=== PATIENT | female | born 1965 | race Two or more races ===

== ENCOUNTER 2018-10-15 13:10 | Emergency (ER) | payer MEDICAID ==
[~2018-10-15] VITALS: Ht 154.9 cm; Wt 106.0 kg
[2018-10-15] MEDS ORDERED: MORPHINE SULFATE 10 MG/ML CPJ IM ONE (15:00)
[2018-10-15] MEDS ORDERED: KETOROLAC 60MG/2ML VIAL IM ONE (15:00)
[2018-10-15 16:15] VITALS: BP 164/82
== END 2018-10-15 18:15 | disposition home or self-care (01) ==
LOC: ER 13:10
DX: S82.252A Displaced comminuted fracture of shaft of left tibia, initial encounter for closed fracture (principal); S82.492A Other fracture of shaft of left fibula, initial encounter for closed fracture; S93.492A Sprain of other ligament of left ankle, initial encounter; S09.8XXA Other specified injuries of head, initial encounter; W10.8XXA Fall (on) (from) other stairs and steps, initial encounter; Y93.01 Activity, walking, marching and hiking; Y92.017 Garden or yard in single-family (private) house as the place of occurrence of the external cause; E11.9 Type 2 diabetes mellitus without complications; I10 Essential (primary) hypertension
CPT/HCPCS: 70450; 73560; 73610; 96372; 99284; J1885; J2270; L1830